=== PATIENT | female | born 1970 | race Caucasian/White ===

== ENCOUNTER 2016-07-28 07:36 | Day surgery (SDC) | payer OTHER ==
[~2016-07-28] VITALS: Ht 162.6 cm; Wt 75.7 kg
[2016-07-28 07:56] VITALS: BP 132/75
[2016-07-28 14:51] VITALS: BP 129/72
== END 2016-07-28 14:30 | disposition home or self-care (01) ==
LOC: DS 07:36
PROVIDERS: Surgery
PROC: 0FT44ZZ Resection of Gallbladder, Percutaneous Endoscopic Approach (ICD-10-PCS; principal; 2016-07-28 08:30)
DX: K80.10 Calculus of gallbladder with chronic cholecystitis without obstruction (principal); D64.9 Anemia, unspecified
CPT/HCPCS: C1887; J0330; J0690; J1170; J2250; J2405; J2704; J3010; J3490; J7120